=== PATIENT | male | born 1940 | race African-American/Black ===

== ENCOUNTER 2024-02-26 11:42 | Inpatient (IN) | payer OTHER, MEDICAID ==
[~2024-02-26] VITALS: Ht 182.9 cm; Wt 83.9 kg
[2024-02-26 11:44] VITALS: O2SAT 98
[2024-02-26 12:25] LABS: HEMATOCRIT. 41.8 % (42.0-52.0); HEMOGLOBIN. 13.1 g/dL (14.0-18.0); MEAN CORPUSCULAR HEMOGLOBIN 28.6 pg (28.0-32.0); MEAN CORPUSCULAR HGB CONC 31.3 g/dL (31.0-37.0); MEAN CORPUSCULAR VOLUME 91.5 fL (80.0-94.0); MEAN PLATELET VOLUME 8.3 fl (7.4-10.4); PLATELET 162 x1000/uL (130-400); RED BLOOD CELL COUNT 4.57 mill/uL (4.7-6.1); RED CELL DISTRIBUTION WIDTH 14.2 % (11.6-14.6); WHITE BLOOD COUNT 8.2 x1000/uL (4.5-11.0)
[2024-02-26 12:36] LABS: PROTHROMBIN TIME 10.7 sec (9.6-11.0)
[2024-02-26 12:38] LABS: CHLORIDE 105 mEq/L (98-107); DIFFERENTIAL COMMENT 1; POTASSIUM 3.9 mEq/L (3.5-5.1); SODIUM 141 mEq/L (136-145)
[2024-02-26 12:39] LABS: CALCIUM 9.4 mg/dL (8.7-10.4); CARBON DIOXIDE 29 mEq/L (21-32)
[2024-02-26 12:44] LABS: CREATININE 1.1 mg/dL (0.6-1.3); GLUCOSE 115 mg/dL (70-105); UREA NITROGEN BLOOD 13 mg/dL (9-23)
[2024-02-26 12:45] LABS: TROPONIN I HIGH SENSITIVITY 50 ng/L (3.0-53)
[2024-02-26 12:46] LABS: ALANINE AMINOTRANSFERASE 14 IU/L (10-49); ALBUMIN 4.7 g/dL (3.2-4.8); ASPARTATE AMINOTRANSFERASE 24 IU/L (<34); BILIRUBIN DIRECT 0.3 mg/dL (<=3.0); BILIRUBIN TOTAL 0.8 mg/dL (0.1-1.0); PROTEIN TOTAL 7.9 g/dL (6.0-8.3)
[2024-02-26 12:59] LABS: PLATELET ESTIMATE NORMAL
[2024-02-26] MEDS: SODIUM CHLORIDE 0.9% 1,000 ML IV ONE (13:06)
[2024-02-26 16:33] LABS: CLARITY URINE CLEAR (CLEAR); COLOR URINE DARK YELLOW (YELLOW); GLUCOSE URINE NEGATIVE (NEGATIVE); KETONES URINE 1+ (NEGATIVE); LEUKOCYTE ESTERASE URINE NEGATIVE (NEGATIVE); NITRITE URINE NEGATIVE (NEGATIVE); OCCULT BLOOD URINE 1+ (NEGATIVE); PROTEIN URINE 1+ (NEGATIVE); SPECIFIC GRAVITY URINE 1.024 (1.005-1.030)
[2024-02-26 16:47] LABS: BACTERIA URINE NONE SEEN; SQUAMOUS EPITHELIAL CELL URINE RARE /lpf (RARE/1+); WBC URINE NONE SEEN /hpf (0-2)
[2024-02-26 20:00] VITALS: BP_SYST 150; BP_DIAS 77; BP_DIAS 81; PULSE 84; PULSE 98; RESP 18; TEMP 97; TEMP 97.4
[2024-02-26] MEDS: ATORVASTATIN CALCIUM 20MG TABLET PO SCH (21:23)
[2024-02-27] VITALS: BP 120/59; PULSE 96; RESP 18; TEMP 97.3
[2024-02-27 04:00] VITALS: BP 141/88; PULSE 88; RESP 18; TEMP 97.3
[2024-02-27 08:00] VITALS: BP 138/69; PULSE 71; RESP 18; TEMP 97.2
[2024-02-27] MEDS: ASPIRIN 81MG TABLET PO SCH (08:56)
[2024-02-27] MEDS: AMLODIPINE 10MG TABLET PO SCH (08:57)
[2024-02-27 10:00] LABS: BASOPHILS % 0.4 % (0.0-2.0); EOSINOPHILS % 4.4 % (0.0-5.0); HEMATOCRIT. 42.3 % (42.0-52.0); HEMOGLOBIN. 13.3 g/dL (14.0-18.0); LYMPHOCYTES % 11.9 % (20.0-50.0); MEAN CORPUSCULAR HEMOGLOBIN 28.7 pg (28.0-32.0); MEAN CORPUSCULAR HGB CONC 31.4 g/dL (31.0-37.0); MEAN CORPUSCULAR VOLUME 91.5 fL (80.0-94.0); MEAN PLATELET VOLUME 9.3 fl (7.4-10.4); NEUTROPHILS % 77.3 % (40.0-76.0); PLATELET 162 x1000/uL (130-400); RED BLOOD CELL COUNT 4.62 mill/uL (4.7-6.1); RED CELL DISTRIBUTION WIDTH 13.9 % (11.6-14.6); WHITE BLOOD COUNT 5.4 x1000/uL (4.5-11.0)
[2024-02-27 10:11] LABS: CARBON DIOXIDE 27 mEq/L (21-32); CHLORIDE 105 mEq/L (98-107); POTASSIUM 3.6 mEq/L (3.5-5.1); SODIUM 143 mEq/L (136-145)
[2024-02-27 10:16] LABS: CREATININE 0.8 mg/dL (0.6-1.3)
[2024-02-27 10:17] LABS: GLUCOSE 78 mg/dL (70-105); UREA NITROGEN BLOOD 15 mg/dL (9-23)
[2024-02-27 10:19] LABS: ALANINE AMINOTRANSFERASE 11 IU/L (10-49); ALBUMIN 4.3 g/dL (3.2-4.8); ASPARTATE AMINOTRANSFERASE 21 IU/L (<34); PROTEIN TOTAL 7.4 g/dL (6.0-8.3)
[2024-02-27 10:21] LABS: THYROID STIMULATING HORMONE 0.99 uIU/mL (0.55-4.78)
[2024-02-27 12:00] VITALS: BP 131/71; PULSE 98; RESP 20; TEMP 96
[2024-02-27 16:00] VITALS: BP 127/75; PULSE 111; RESP 21; TEMP 97.9
[2024-02-27 20:00] VITALS: BP 125/77; PULSE 94; RESP 20; TEMP 97.3
[2024-02-27] MEDS: ENOXAPARIN 40MG/0.4ML SYR SUBCUT SCH (21:36)
[2024-02-27] MEDS: CARBIDOPA/LEVODOPA 25/100MG TABLET PO SCH (21:36)
[2024-02-28 07:53] LABS: VITAMIN B12 SERUM 414 pg/mL (211-911)
[2024-02-28 08:00] VITALS: BP 130/75; PULSE 90; RESP 20; TEMP 97.6
[2024-02-28 12:00] VITALS: BP 105/54; PULSE 65; RESP 18; TEMP 97.4
[2024-02-28 16:00] VITALS: BP 103/60; PULSE 109; RESP 18; TEMP 98.6
[2024-02-28 20:00] VITALS: BP 107/45; PULSE 81; RESP 19; TEMP 99.3
== END 2024-02-28 22:00 | disposition short-term general hospital (02) | DRG 57 ==
LOC: ER 12:48 → 5WST 16:51 → 6WST 19:08
PROVIDERS: ADMIT Internal Medicine; ATTEND Internal Medicine
DX: G20.A1 Parkinson's disease without dyskinesia, without mention of fluctuations (principal); I10 Essential (primary) hypertension; R62.7 Adult failure to thrive; Z68.25 Body mass index [BMI] 25.0-25.9, adult; Z79.899 Other long term (current) drug therapy
CPT/HCPCS: 36415; 70551; 71045; 80048; 80053; 80076; 81003; 82607; 83880; 84443; 84484; 85025; 87426; 93005; 99285; J1650; J7030